=== PATIENT | female | born 1955 | race Caucasian/White ===

== ENCOUNTER 2023-05-03 04:06 | Day surgery (SDC) | payer MEDICARE, MEDICAID, SELFPAY ==
--- NOTE | 2023-04-22 13:19 | PC.NURSE ---
Addendum entered by Josie Lawson RN 04/22/23 13:42: HOLD ASPIRIN PER DR PATTON Original Note: Report to the Outpatient Waiting Room, entrance under the green pavilion located off [facility], at time _9:00AM on date __05/03/23 . Planned Procedure Time: __11:00AM . Time changes happen often and if your time is changed the preop area will call you the afternoon before. - You and your visitor will be asked to self-screen and do not enter if you have any COVID symptoms. - A mask is optional within the hospital at this time. Patients may have clear liquids (water, carbonated beverages, clear teas, apple juice) until 3 hours prior to surgery with a maximum of 20 ounces. - No food from midnight until time of surgery. Take the following medications with a SIP of water the morning of surgery: __AMLODIPINE, BUSPIRONE, ESCITALOPRAM, OLANZAPINE, ZIPRASIDONE & AM EYE DROPS. TRAMADOL, ALBUTEROL INHALER & NEBULIZER TREATMENT NEEDED. DO NOT STOP ANY OF YOUR OTHER PRESCRIPTION MEDICATIONS PRIOR TO SURGERY ?EXCEPT THE FOLLOWING Medications to discontinue per physician ____HOLD ASPIRIN 7 DAYS PRE-OP PER DR PATTON Date to take last dose____04/26/23 Please no make-up, nail djiboutian, hairspray, perfume, deodorant, or body powder the day of surgery. No jewelry (including any body piercings) or valuables the day of surgery, leave them at home. Please take a shower or bath the night before, or the morning of, surgery with an antibacterial soap. Wear comfortable, loose fitting clothing. - Jewelry must be removed prior to entering the operating room. Rings and piercings that are not removed may be cut off. - The hospital will not accept responsibility for valuables. - Please leave all valuables, including medications, at home the day of surgery. If you are going home after surgery, a licensed wood pile driver operator must drive you home. - NO public transportation without another adult if you receive anesthesia. - We recommend that an adult stay with you for 24 hours following discharge. - We also recommend that you do not drive, make important decision, drink alcoholic beverages, or take any drugs that were not prescribed by your health care provider for at least 24 hours after your discharge time. Follow any additional instructions given to you from your surgeon. If you or anyone in your household have experienced Covid symptoms in the past week, please notify your surgeon or the nurse liaison at the phone number below for possible testing. Telephone instructions given to _NURSING HOME____and asked if any additional questions and then verbalized understanding. Patient advised to call surgeon office or pre surgery nurse liaison [phone] if any additional questions.
[2023-05-03] VITALS (11 sets, daily range): BP systolic 107–145; BP diastolic 58–89; PULSE 67–82; RESP 14–18; TEMP 36.2–36.6; O2SAT 92–100
--- NOTE | ~2023-05-03 | XR_ITS ---
EXAMINATION: XR retrograde pyelo w/stent BI DATE: 05/03/2023 10:53 INDICATION: Bilateral kidney stones. TECHNIQUE: 4 intraoperative fluoroscopic views of the abdomen and pelvis were obtained. I was not pre sent. Fluoroscopy exposure time was 100 seconds. COMPARISON: None. FINDINGS: Bilateral retrograde pyelograms were performed. There is a large stone in right renal pelvi s. The final images demonstrate bilateral internal ureteral stents in expected positions. IMPRESSION: 1. Stone in right renal pelvis. 2. Bilateral internal ureteral stents in expected positions. Reviewed, dictated and finalized at location A.
--- NOTE | ~2023-05-03 | XR_ITS ---
EXAMINATION: XR abdomen/kub 1V DATE: 05/03/2023 09:13 INDICATION: Kidney stone. TECHNIQUE: A supine view of the abdomen on 2 radiographs was obtained. COMPARISON: None. FINDINGS: There is a large volume of stool in the colon with distention of the rectum. The kidneys ar e obscured by bowel. There are surgical clips in right abdomen. Tubing overlies the abdomen. There is a total right hip arthroplasty. IMPRESSION: 1. No visible urolithiasis. Reviewed, dictated and finalized at location A. IMPRESSION: 1. No visible urolithiasis.
--- NOTE | 2023-05-03 06:59 | WPDHPUPDATE1 ---
History and Physical Update Update Date/Time: 05/03/23 06:59 History and Physical has been reviewed, including an updated exam of the patient. There are NO changes in the patient's condition. Risks, benefits, and alternatives have been discussed and questions answered. Patient agrees to proceed with procedure.
--- NOTE | 2023-05-03 09:51 | WPDANESEPPF ---
Anes - Initial Pre Proc Eval Procedure: Operation Date: 05/03/23 10:30 Proposed Procedures p Right Extracorporeal Shock Wave Lithotripsy - Octavio Alvarez MD s Cystoscopy with Stent Placement - Octavio Alvarez MD Date/Time: 05/03/23 09:51 Surgeon: Octavio Alvarez MD Pre Op Diagnosis: right renal stone Patient Data Age: 68 Gender: F Height: Weight: Allergies Allergy/AdvReac Type Severity Reaction Status Date / Time No Known Allergies Allergy Verified 04/19/23 15:35 Home Medications Medication Instructions Recorded Confirmed Type acetaminophen 325 mg tablet 650 mg PO Q4-5H PRN Pain 04/19/23 04/19/23 History albuterol (refill) 90 2 mcg inhalation Q6-8H PRN Wheezing 04/19/23 04/19/23 History mcg/actuation aerosol inhaler amlodipine 5 mg tablet 5 mg PO QAM 04/19/23 04/19/23 History artificial tears solution eye drops 1 drp ophthalmic (eye) PRN PRN Dry 04/19/23 04/19/23 History Eye(S) aspirin 81 mg tablet,delayed 81 mg PO DAILY 04/19/23 04/19/23 History release bisacodyl 10 mg rectal suppository 10 mg RECTAL DAILY PRN Constipation 04/19/23 04/19/23 History bisacodyl 5 mg tablet 5 mg PO DAILY PRN Constipation 04/19/23 04/19/23 History brinzolamide 1 %-brimonidine 0.2 % 1 drp EACH EYE BID 04/19/23 04/19/23 History eye drops,suspension (Simbrinza) buspirone 10 mg tablet 10 mg PO BID 04/19/23 04/19/23 History calcium carbonate 500 mg calcium 500 mg PO DAILY PRN Indigestion 04/19/23 04/19/23 History (1,250 mg) chewable tablet camphor-menthol 0.2 %-3.5 % 1 applic topical DAILY PRN Pain 04/19/23 04/19/23 History topical gel docusate sodium 100 mg capsule 100 mg PO BID 04/19/23 04/19/23 History (Colace) escitalopram oxalate 5 mg tablet 5 mg PO QAM 04/19/23 04/19/23 History ipratropium 0.5 mg-albuterol 3 mg 3 ml inhalation Q6-8H PRN Wheezing 04/19/23 04/19/23 History (2.5 mg base)/3 mL nebulization soln lactobacillus combination no.8 3 3 cell PO QAM 04/19/23 04/19/23 History billion cell capsule loteprednol etabonate 0.2 % eye 1 drp EACH EYE TID 04/19/23 04/19/23 History drops,suspension (Alrex) montelukast 10 mg tablet 10 mg PO DAILY 04/19/23 04/19/23 History nystatin 100,000 unit/gram topical 1 applic topical BID 04/19/23 04/19/23 History powder olanzapine 5 mg tablet 5 mg PO QAM 04/19/23 04/19/23 History olopatadine 0.7 % eye drops 1 drp EACH EYE DAILY 04/19/23 04/19/23 History (Pataday Once Daily Relief) ondansetron HCl 4 mg tablet 4 mg PO Q8-10H PRN Nausea 04/19/23 04/19/23 History pantoprazole 20 mg tablet,delayed 20 mg PO QAM 04/19/23 04/19/23 History release polyethylene glycol 3350 17 17 g PO DAILY 04/19/23 04/19/23 History gram/dose oral powder sennosides 8.6 mg tablet (Senna 8.6 mg PO BID 04/19/23 04/19/23 History Lax) solifenacin 10 mg tablet 10 mg PO QAM 04/19/23 04/19/23 History tramadol 50 mg tablet 50 mg PO BID 04/19/23 04/19/23 History ziprasidone HCl 80 mg capsule 80 mg PO BID 04/19/23 04/19/23 History sulfamethoxazole 400 1 tablet PO BID 04/22/23 04/22/23 History mg-trimethoprim 80 mg tablet Patient hx anesthesia problems: none Family hx anesthesia problems: none Results Review: All pre-operative results and documents have been reviewed as part of the pre-operative evaluation. [facility] Past Medical History Medical History (Updated 05/03/23 @ 09:52 by Clarke Can MD) Asthma CKD (chronic kidney disease) Morbid obesity Social History Social History Smoking status: Unknown if ever smoked Living arrangements: fpc Spiritual care concerns: No Anes - Eval Final PreProcedure Day of Procedure 05/03/23 09:51 Patient weight: morbidly obese Heart: regular rate and rhythm Lungs: clear to auscultation Airway: Mallampati scale class II and special considerations poor opening and poor extension Neurological: alert and oriented Last oral intake: >/= 8
--- NOTE | 2023-05-03 09:53 | ECG_ITS ---
Measurements Intervals [place] Rate: 74 P: 49 MT: 186 QRS: 38 QRSD: 98 T: 16 QT: 371 QTc: 412 Interpretive Statements SINUS RHYTHM NORMAL ECG NO PREVIOUS ECG AVAILABLE FOR COMPARISON Electronically Signed On 05-03-2023 14:00:30 CDT by Shahid Salomon M.D.
[2023-05-03] MEDS: ceFAZolin 2 GM/D5W 50 ML 2 GM/50 ML BAG IVPB (10:29)
[2023-05-03] MEDS: LACTATED RINGERS 1,000 ML 30 ML IV CONT (10:56)
--- NOTE | 2023-05-03 11:06 | W.PM.PROC2 ---
Procedure Note - Detailed Date of Procedure 05/03/23 Pre-op Diagnosis Bilateral renal calculi Post-op Diagnosis Same Procedure Performed Cystoscopy, bilateral retrograde pyelography, bilateral ureteral stent placement Surgeon Octavio Alvarez MD Anesthesia General Description of Procedure Patient was initially scheduled for right ESWL but given a recent positive urine culture we elected, instead for cystoscopy with bilateral ureteral stent placement to enhance clearing her chronic urinary tract infection. Outside imaging was carefully reviewed and discussed with patient and her caregiver. She has a left renal staghorn and a large 15-18 mm right renal pelvic stone that appears to be densely calcified. With our procedure we placed a 21 F rigid cystoscope in her bladder. Her bladder neck and urethra endoscopically normal. Bladder showed diffuse hyperemia consistent with infection. She had a single orthotopic ureteral orifice bilaterally. And angiographic catheter was used to obtain bilateral retrograde pyelograms. On the right she appears quite obstructed with placement of a 6 F variable length stent there is markedly purulent urine effluxing from the right ureteral orifice. A left stent was easier to place. Intraoperative fluoroscopy confirmed appropriate positioning of the stents with proximal coil was in renal pelvis and distal coil in the bladder. Scopes wire was removed she was taken recovery room good condition. I will plan to treat her with 7 days of ceftazidime 1 g b.i.d. and Macrobid 1 tablet b.i.d.. I will and re-culture her urine and will make an ultimate decision about either chronic indwelling ureteral stents versus more aggressive therapy for her large bilateral renal stones. Packing No Pathology Yes Complications No immediate complications Condition Stable Disposition PACU
[2023-05-03 11:36] LABS: Glucose Point of Care 87 mg/dl (65-105)
[2023-05-03] MEDS: cefTAZidime 1 GM/NS 50 ML 1 GM/50 ML BAG IVPB (11:38)
[2023-05-03] MEDS: fentaNYL CITRATE INJ (*CRX) 100 MCG/2 ML VIAL 25 MCG IV PUSH ×2 (11:59→12:05)
[2023-05-03] MEDS: oxyCODONE HCL (*CRX) 5 MG TAB IR PO (12:46)
[2023-05-03] MEDS: LIDOCAINE HCL 1% LOCAL INJ 2 ML AMPUL 5 ML INFILTRATE (13:20)
--- NOTE | 2023-05-03 14:04 | SUR.PHASEII ---
Addendum entered by Ashlee Wise RN 05/03/23 14:38: Spoke with Josie HERNÁNDEZ at [facility] and updated on last dose of pain medication and last dose of antibiotics. Original Note: Pt facility [facility] updated on pt prescriptions and discharge instructions and notified of discharge.
== END 2023-05-03 14:18 | disposition home or self-care (01) ==
PROVIDERS: Visit Provider Urology
PROC: (CPT 52352; 2023-05-03 10:30)
DX: N39.0 Urinary tract infection, site not specified (principal); N20.0 Calculus of kidney; J45.909 Unspecified asthma, uncomplicated; Z79.51 Long term (current) use of inhaled steroids; Z79.82 Long term (current) use of aspirin; N18.9 Chronic kidney disease, unspecified
CPT/HCPCS: 52332; 36569; 74018; 74420; 82948; 87077; 87086; 87147; 87181; 87186; 93005; A9270; C1758; C1769; C2617; J0690; J0713; J2704; J3010; J7120; Q9966

== ENCOUNTER 2023-09-05 00:36 | Day surgery (SDC) | payer MEDICARE, MEDICAID, SELFPAY ==
--- NOTE | 2023-08-26 15:02 | PC.NURSE ---
Report to the Outpatient Waiting Room, entrance under the green pavilion located off [facility], at time __10:00AM on date __09/05/23 . Planned Procedure Time: __12:00PM . Time changes happen often and if your time is changed the preop area will call you the afternoon before. - You and your visitor will be asked to self-screen and do not enter if you have any COVID symptoms. - A mask is optional within the hospital at this time. Patients may have clear liquids (water, carbonated beverages, clear teas, apple juice) until 3 hours prior to surgery with a maximum of 20 ounces. - No food from midnight until time of surgery. Take the following medications with a SIP of water the morning of surgery: __AMLODIPINE, BUSPIRONE, ESCITALOPRAM, OLANZAPINE, SIMBRINZA, ZIPRASIDONE, EYE DROPS. MAY GIVE PRN-ALBUTEROL INHALER, IPRATROPIUM-ALBUTEROL INHALER, COUGH MEDICATION,ZOFRAN OR TRAMADOL NEEDED. DO NOT STOP ANY OF YOUR OTHER PRESCRIPTION MEDICATIONS PRIOR TO SURGERY ?EXCEPT THE FOLLOWING Medications to discontinue per physician ___HOLD ASPIRIN 7 DAYS PRE-OP PER DR PATTON Date to take last dose 08/28/23 Please no make-up, nail lithuanian, hairspray, perfume, deodorant, or body powder the day of surgery. No jewelry (including any body piercings) or valuables the day of surgery, leave them at home. Please take a shower or bath the night before, or the morning of, surgery with an antibacterial soap. Wear comfortable, loose fitting clothing. - Jewelry must be removed prior to entering the operating room. Rings and piercings that are not removed may be cut off. - The hospital will not accept responsibility for valuables. - Please leave all valuables, including medications, at home the day of surgery. If you are going home after surgery, a licensed shuttle van driver must drive you home. - NO public transportation without another adult if you receive anesthesia. - We recommend that an adult stay with you for 24 hours following discharge. - We also recommend that you do not drive, make important decision, drink alcoholic beverages, or take any drugs that were not prescribed by your health care provider for at least 24 hours after your discharge time. Follow any additional instructions given to you from your surgeon. If you or anyone in your household have experienced Covid symptoms in the past week, please notify your surgeon or the nurse liaison at the phone number below for possible testing. Telephone instructions given to ___NURSING HOME and asked if any additional questions and then verbalized understanding. Patient advised to call surgeon office or pre surgery nurse liaison [phone] if any additional questions.
[2023-08-26 15:11] VITALS: BMI 44.5
--- NOTE | 2023-09-03 14:01 | PM.HPGS ---
History of Present Illness History of Present Illness Consent: Risks, benefits, and alternatives have been discussed and questions answered. Patient agrees to proceed with procedure. Chief complaint: Kidney Stone, Pyelonephritis Narrative: Kay Khan is a 68 year old female who resides in a care home, has a BMI in excess of 45 with very limited mobility. She has a challenging urological problem with a left staghorn calculus and a large, 15-20 mm right renal pelvic calculus. Her body habitus makes these not amenable to ESWL. We have considered percutaneous nephrolithotomy but she has opted against and elected, instead, for chronic ureteral stents with bilateral ureteral stent exchange at a regular interval. She is aware the risk including, but not limited to, long-term renal deterioration, hematuria, urinary tract infections. Review of Systems Cardiovascular: Cardiovascular: Denies chest pain, Denies lightheadedness, Denies palpitations and Denies dyspnea Respiratory: Respiratory: Denies dyspnea Gastrointestinal: Gastrointestinal: Denies diarrhea, Denies nausea and Denies vomiting Genitourinary: Genitourinary: Denies hematuria and Denies dysuria Endocrine: Endocrine: Denies palpitations [facility] Past Medical History Medical History (Updated 09/03/23 @ 14:02 by Octavio Alvarez MD) Asthma CKD (chronic kidney disease) Morbid obesity Social History Social History Smoking status: Unknown if ever smoked Alcohol intake: unknown Substance use: unknown Living arrangements: care home Spiritual care concerns: No Meds Home Medications and Allergies Home Medications Medication Instructions Recorded Confirmed Type acetaminophen 325 mg tablet 650 mg PO Q4-5H PRN Pain 04/19/23 08/26/23 History albuterol (refill) 90 2 mcg inhalation Q6-8H PRN Wheezing 04/19/23 08/26/23 History mcg/actuation aerosol inhaler amlodipine 5 mg tablet 5 mg PO QAM 04/19/23 08/26/23 History artificial tears solution eye drops 1 drp ophthalmic (eye) PRN PRN Dry 04/19/23 08/26/23 History Eye(S) aspirin 81 mg tablet,delayed 81 mg PO DAILY 04/19/23 08/26/23 History release bisacodyl 10 mg rectal suppository 10 mg RECTAL DAILY PRN Constipation 04/19/23 08/26/23 History bisacodyl 5 mg tablet 5 mg PO DAILY PRN Constipation 04/19/23 08/26/23 History brinzolamide 1 %-brimonidine 0.2 % 1 drp EACH EYE BID 04/19/23 08/26/23 History eye drops,suspension (Simbrinza) buspirone 10 mg tablet 10 mg PO TID 04/19/23 08/26/23 History calcium carbonate 500 mg calcium 500 mg PO DAILY PRN Indigestion 04/19/23 08/26/23 History (1,250 mg) chewable tablet docusate sodium 100 mg capsule 100 mg PO BID 04/19/23 08/26/23 History (Colace) ipratropium 0.5 mg-albuterol 3 mg 3 ml inhalation Q6-8H PRN Wheezing 04/19/23 08/26/23 History (2.5 mg base)/3 mL nebulization soln loteprednol etabonate 0.2 % eye 1 drp EACH EYE TID 04/19/23 08/26/23 History drops,suspension (Alrex) montelukast 10 mg tablet 10 mg PO DAILY 04/19/23 08/26/23 History nystatin 100,000 unit/gram topical 1 applic topical BID PRN Rash 04/19/23 08/26/23 History powder olanzapine 5 mg tablet 5 mg PO QAM 04/19/23 08/26/23 History olopatadine 0.7 % eye drops 1 drp EACH EYE DAILY 04/19/23 08/26/23 History (Pataday Once Daily Relief) ondansetron HCl 4 mg tablet 4 mg PO Q8-10H PRN Nausea 04/19/23 08/26/23 History pantoprazole 20 mg tablet,delayed 20 mg PO QAM 04/19/23 08/26/23 History release polyethylene glycol 3350 17 17 g PO DAILY PRN Constipation 04/19/23 08/26/23 History gram/dose oral powder sennosides 8.6 mg tablet (Senna 8.6 mg PO BID 04/19/23 08/26/23 History Lax) solifenacin 10 mg tablet 10 mg PO QAM 04/19/23 08/26/23 History tramadol 50 mg tablet 50 mg PO BID 04/19/23 08/26/23 History ziprasidone HCl 80 mg capsule 80 mg PO BID 04/19/23 08/26/23 History benzonatate 100 mg capsule 100 mg PO Q8-10
--- NOTE | 2023-09-04 09:50 | WPDANESEPPF ---
Anes - Initial Pre Proc Eval Procedure: Operation Date: 09/05/23 13:00 Proposed Procedures p Cystoscopy, Bilateral Retrograde Pyelogram, Bilateral Stent Exchange - Octavio Alvarez MD Date/Time: 09/04/23 09:50 Surgeon: Octavio Alvarez MD Pre Op Diagnosis: Kidney Stone, Pyelonephritis Patient Data Age: 68 Gender: F Height: 1.55 m Weight: 107 kg Allergies Allergy/AdvReac Type Severity Reaction Status Date / Time No Known Allergies Allergy Verified 09/05/23 11:23 Home Medications Medication Instructions Recorded Confirmed Type acetaminophen 325 mg tablet 650 mg PO Q4-5H PRN Pain 04/19/23 08/26/23 History albuterol (refill) 90 2 mcg inhalation Q6-8H PRN Wheezing 04/19/23 08/26/23 History mcg/actuation aerosol inhaler amlodipine 5 mg tablet 5 mg PO QAM 04/19/23 09/05/23 History artificial tears solution eye drops 1 drp ophthalmic (eye) PRN PRN Dry 04/19/23 09/05/23 History Eye(S) aspirin 81 mg tablet,delayed 81 mg PO DAILY 04/19/23 09/05/23 History release bisacodyl 10 mg rectal suppository 10 mg RECTAL DAILY PRN Constipation 04/19/23 08/26/23 History bisacodyl 5 mg tablet 5 mg PO DAILY PRN Constipation 04/19/23 08/26/23 History brinzolamide 1 %-brimonidine 0.2 % 1 drp EACH EYE BID 04/19/23 09/05/23 History eye drops,suspension (Simbrinza) buspirone 10 mg tablet 10 mg PO TID 04/19/23 09/05/23 History calcium carbonate 500 mg calcium 500 mg PO DAILY PRN Indigestion 04/19/23 08/26/23 History (1,250 mg) chewable tablet docusate sodium 100 mg capsule 100 mg PO BID 04/19/23 08/26/23 History (Colace) ipratropium 0.5 mg-albuterol 3 mg 3 ml inhalation Q6-8H PRN Wheezing 04/19/23 08/26/23 History (2.5 mg base)/3 mL nebulization soln loteprednol etabonate 0.2 % eye 1 drp EACH EYE TID 04/19/23 08/26/23 History drops,suspension (Alrex) montelukast 10 mg tablet 10 mg PO DAILY 04/19/23 08/26/23 History nystatin 100,000 unit/gram topical 1 applic topical BID PRN Rash 04/19/23 08/26/23 History powder olanzapine 5 mg tablet 5 mg PO QAM 04/19/23 09/05/23 History olopatadine 0.7 % eye drops 1 drp EACH EYE DAILY 04/19/23 08/26/23 History (Pataday Once Daily Relief) ondansetron HCl 4 mg tablet 4 mg PO Q8-10H PRN Nausea 04/19/23 08/26/23 History pantoprazole 20 mg tablet,delayed 20 mg PO QAM 04/19/23 08/26/23 History release polyethylene glycol 3350 17 17 g PO DAILY PRN Constipation 04/19/23 08/26/23 History gram/dose oral powder sennosides 8.6 mg tablet (Senna 8.6 mg PO BID 04/19/23 08/26/23 History Lax) solifenacin 10 mg tablet 10 mg PO QAM 04/19/23 08/26/23 History tramadol 50 mg tablet 50 mg PO BID 04/19/23 08/26/23 History ziprasidone HCl 80 mg capsule 80 mg PO BID 04/19/23 09/05/23 History benzonatate 100 mg capsule 100 mg PO Q8-10H PRN Cough 08/26/23 08/26/23 History dextromethorphan-guaifenesin 20 10 ml PO Q6-12H PRN Cough 08/26/23 08/26/23 History mg-200 mg/15 mL oral liquid escitalopram oxalate 10 mg tablet 10 mg PO DAILY 08/26/23 09/05/23 History guaifenesin 600 mg tablet,extended 600 mg PO BID PRN Cough 08/26/23 08/26/23 History release melatonin 5 mg tablet 5 mg PO HS PRN Insomnia 08/26/23 08/26/23 History Patient hx anesthesia problems: none Family hx anesthesia problems: none Results Review: All pre-operative results and documents have been reviewed as part of the pre-operative evaluation. COUNTS INCLUDE 234 BEDS AT THE [facility] Past Medical History Medical History (Updated 09/04/23 @ 09:51 by Jaydon Castano, ) Asthma Bipolar disorder CKD (chronic kidney disease) DVT (deep venous thrombosis) GERD (gastroesophageal reflux disease) Glaucoma Hyperlipidemia Hypertension Lymphedema Morbid obesity Schizophrenia Social History Social History Smoking status: Unknown if ever smoked Alcohol intake: unknown Substance use: unknown Living arrangements: shelter Spiritual care concerns: No Anes - Eval F
[2023-09-05] VITALS (9 sets, daily range): BP systolic 114–142; BP diastolic 56–82; PULSE 69–80; RESP 11–20; TEMP 36.3–36.7; O2SAT 94–100
--- NOTE | ~2023-09-05 | XR_ITS ---
EXAMINATION: XR retrograde pyelo w/stent BI DATE: 09/05/2023 13:23 INDICATION: Kidney stone. Bilateral pyelonephritis. TECHNIQUE: 32 intraoperative fluoroscopic views of the abdomen and pelvis were obtained. I was not pr esent. Fluoroscopy exposure time was 37 seconds. COMPARISON: Fluoroscopy 05/03/2023 FINDINGS: Bilateral retrograde pyelograms are unremarkable. The final images demonstrated bilateral i nternal ureteral stents in expected position. IMPRESSION: 1. New bilateral internal ureteral stents in expected positions. Reviewed, dictated and finalized at location A. [place] [employer]
--- NOTE | 2023-09-05 06:13 | WPDHPUPDATE1 ---
History and Physical Update Update Date/Time: 09/05/23 06:13 History and Physical has been reviewed, including an updated exam of the patient. There are NO changes in the patient's condition. Risks, benefits, and alternatives have been discussed and questions answered. Patient agrees to proceed with procedure.
[2023-09-05] MEDS: LACTATED RINGERS 1,000 ML 30 ML IV CONT (11:20)
--- NOTE | 2023-09-05 13:26 | P.OP_ITS ---
Procedure Note - Detailed Date of Procedure 09/05/23 Pre-op Diagnosis Kidney Stone, Pyelonephritis Post-op Diagnosis Same Procedure Performed Cystoscopy, bilateral retrograde pyelography, bilateral ureteral stent exchange Surgeon Octavio Alvarez MD Anesthesia General Description of Procedure Patient brought the op suite where she has prepped draped in routine sterile fashion while in dorsal lithotomy position. 2% xylocaine jelly was introduced intraurethrally and general anesthesia for an LMA as administered per the anesthesia department. Cystoscopy is undertaken with a 21 F rigid cystoscope. The tip of each indwelling stent is brought to the external urethral meatus. The bladder mucosa is normal except for mild hyperemia around the ureteral orifices as result of indwelling stents. They are to intravesical neoplasm. Each stent is removed with ease with minimal incrustation. Angiographic cath eter was used to obtain bilateral retrograde pyelograms and ensure appropriate placement of bilateral 6 F variable length stent. Bladder was emptied patient was taken recovery room good condition. Drains Yes Packing No Pathology None sent Complications No immediate complications
== END 2023-09-05 15:47 | disposition home or self-care (01) ==
PROVIDERS: Visit Provider Urology
PROC: (CPT 52352; principal; 2023-09-05 13:00)
DX: N20.2 Calculus of kidney with calculus of ureter (principal); J45.909 Unspecified asthma, uncomplicated; I12.9 Hypertensive chronic kidney disease with stage 1 through stage 4 chronic kidney disease, or unspecified chronic kidney disease; N18.9 Chronic kidney disease, unspecified; E78.5 Hyperlipidemia, unspecified; K21.9 Gastro-esophageal reflux disease without esophagitis; F31.9 Bipolar disorder, unspecified; F20.9 Schizophrenia, unspecified; Z86.718 Personal history of other venous thrombosis and embolism; Z79.51 Long term (current) use of inhaled steroids; Z79.82 Long term (current) use of aspirin; E66.01 Morbid (severe) obesity due to excess calories; Z68.42 Body mass index [BMI] 45.0-49.9, adult
CPT/HCPCS: 52332; 74420; C1758; C1769; C2617; J0696; J2250; J2405; J2704; J3010; J7120; Q9966

== ENCOUNTER 2024-03-05 01:32 | Day surgery (SDC) | payer MEDICARE, MEDICAID, SELFPAY ==
[2024-03-03 13:33] VITALS: BMI 47.7
--- NOTE | 2024-03-03 13:39 | PC.NURSE ---
Report to the Outpatient Waiting Room, entrance under the green pavilion located off [facility], at time _10:00 AM on date _03/05/24 . Planned Procedure Time: _12:00 PM . Time changes happen often and if your time is changed the preop area will call you the afternoon before. - You and your visitor will be asked to self-screen and do not enter if you have any COVID symptoms. - A mask is optional within the hospital at this time. Patients may have clear liquids (water, carbonated beverages, clear teas, apple juice) until 3 hours prior to surgery(9:OO AM) with a maximum of 20 ounces. - No food from midnight until time of surgery - Infants may have breast milk until 4 hours before surgery, infant formula 6 hours prior to surgery. - Children will be allowed to drink immediately following surgery. If applicable, please bring a bottle or sippy cup to assist with drinking. Juice, water, soda, and popsicles are readily available. For infants on formula, please bring formula the day of surgery. Pacifiers are allowed. Take the following medications with a SIP of water the morning of surgery: _EYE DROPS,AMLODIPINE,BUSPIRONE,DULOXETINE,ESCITALOPRAM,ZIPRASIDONE,OLAZAPINE.ALBUTEROL IF NEEDED DO NOT STOP ANY OF YOUR OTHER PRESCRIPTION MEDICATIONS PRIOR TO SURGERY ?EXCEPT THE FOLLOWING Medications to discontinue per physician __HOLD ASPIRIN 7 DAYS PRE OP PER DR PATTON.LAST DOSE 02/26/24 Please no make-up, nail latvian, hairspray, perfume, deodorant, or body powder the day of surgery. No jewelry (including any body piercings) or valuables the day of surgery, leave them at home. Please take a shower or bath the night before, or the morning of, surgery with an antibacterial soap. Wear comfortable, loose fitting clothing. Children are encouraged to wear pajamas. - Jewelry must be removed prior to entering the operating room. Rings and piercings that are not removed may be cut off. - The hospital will not accept responsibility for valuables. - Please leave all valuables, including medications, at home the day of surgery. If you are going home after surgery, a licensed star route mail driver must drive you home. - NO public transportation without another adult if you receive anesthesia. - We recommend that an adult stay with you for 24 hours following discharge. - We also recommend that you do not drive, make important decision, drink alcoholic beverages, or take any drugs that were not prescribed by your health care provider for at least 24 hours after your discharge time. For Pediatric surgeries, we recommend two adults accompany the child home. Follow any additional instructions given to you from your surgeon. If you or anyone in your household have experienced Covid symptoms in the past week, please notify your surgeon or the nurse liaison at the phone number below for possible testing. FAXED instructions given to _[facility] ATTEN: AICHA and asked if any additional questions and then verbalized understanding. Patient advised to call surgeon office or pre surgery nurse liaison [phone] if any additional questions.
--- NOTE | 2024-03-04 07:28 | PM.HPGS ---
History of Present Illness History of Present Illness Consent: Risks, benefits, and alternatives have been discussed and questions answered. Patient agrees to proceed with procedure. Chief complaint: Bilateral [place] Kidney Stone Narrative: Kay Khan is a 68 year old female who resides in a senior care, has a BMI in excess of 45 with very limited mobility. She has a challenging urological problem with a left staghorn calculus and a large, 15-20 mm right renal pelvic calculus. Her body habitus makes these not amenable to ESWL. We have considered percutaneous nephrolithotomy but she has opted against and elected, instead, for chronic ureteral stents with bilateral ureteral stent exchange at a regular interval. She is aware the risk including, but not limited to, long-term renal deterioration, hematuria, urinary tract infections. Review of Systems Review of Systems: All systems reviewed & are unremarkable except as noted in HPI and below PMFSH Past Medical History Medical History (Updated 09/04/23 @ 09:51 by Jaydon Castano, ) Asthma Bipolar disorder CKD (chronic kidney disease) DVT (deep venous thrombosis) GERD (gastroesophageal reflux disease) Glaucoma Hyperlipidemia Hypertension Lymphedema Morbid obesity Schizophrenia Social History Social History Smoking status: Unknown if ever smoked Alcohol intake: unknown Substance use: unknown Living arrangements: senior care Spiritual care concerns: No Meds Home Medications and Allergies Home Medications Medication Instructions Recorded Confirmed Type acetaminophen 325 mg tablet 650 mg PO Q4-5H PRN Pain 04/19/23 03/03/24 History albuterol (refill) 90 2 mcg inhalation Q6-8H PRN Cough 04/19/23 03/03/24 History mcg/actuation aerosol inhaler amlodipine 5 mg tablet 5 mg PO QAM 04/19/23 03/03/24 History artificial tears solution eye drops 1 drp ophthalmic (eye) PRN PRN Dry 04/19/23 03/03/24 History Eye(S) aspirin 81 mg tablet,delayed 81 mg PO DAILY 04/19/23 03/03/24 History release bisacodyl 10 mg rectal suppository 10 mg RECTAL PRN PRN Constipation 04/19/23 03/03/24 History brinzolamide 1 %-brimonidine 0.2 % 1 drp EACH EYE BID 04/19/23 03/03/24 History eye drops,suspension (Simbrinza) buspirone 10 mg tablet 10 mg PO TID 04/19/23 03/03/24 History calcium carbonate 500 mg PO DAILY PRN Indigestion 04/19/23 03/03/24 History docusate sodium 100 mg capsule 100 mg PO BID 04/19/23 03/03/24 History (Colace) ipratropium 0.5 mg-albuterol 3 mg 3 ml inhalation Q6-8H PRN Wheezing 04/19/23 03/03/24 History (2.5 mg base)/3 mL nebulization soln loteprednol etabonate 0.2 % eye 1 drp EACH EYE TID 04/19/23 03/03/24 History drops,suspension (Alrex) montelukast 10 mg tablet 10 mg PO DAILY 04/19/23 03/03/24 History nystatin 100,000 unit/gram topical 1 applic topical BID PRN Rash 04/19/23 03/03/24 History powder olanzapine 5 mg tablet 5 mg PO BID 04/19/23 03/03/24 History olopatadine 0.7 % eye drops 1 drp EACH EYE DAILY 04/19/23 03/03/24 History (Pataday Once Daily Relief) pantoprazole 20 mg tablet,delayed 20 mg PO QAM 04/19/23 03/03/24 History release polyethylene glycol 3350 17 17 g PO DAILY PRN Constipation 04/19/23 03/03/24 History gram/dose oral powder sennosides 8.6 mg tablet (Senna 8.6 mg PO BID 04/19/23 03/03/24 History Lax) solifenacin 10 mg tablet 10 mg PO QAM 04/19/23 03/03/24 History tramadol 50 mg tablet 50 mg PO BID 04/19/23 03/03/24 History ziprasidone HCl 80 mg capsule 80 mg PO BID 04/19/23 03/03/24 History benzonatate 100 mg capsule 100 mg PO Q8-10H PRN Cough 08/26/23 03/03/24 History dextromethorphan-guaifenesin 20 10 ml PO Q6-12H PRN Cough 08/26/23 03/03/24 History mg-200 mg/15 mL oral liquid escitalopram oxalate 10 mg tablet 10 mg PO DAILY 08/26/23 03/03/24 History guaifenesin 600 mg tablet,extended 600 mg PO BID PRN Cough 08/26/23 03/03/24 History r
[2024-03-05] VITALS (10 sets, daily range): BP systolic 121–141; BP diastolic 57–83; PULSE 68–81; RESP 13–20; TEMP 34.9–36.1; O2SAT 95–100
--- NOTE | ~2024-03-05 | XR_ITS ---
EXAMINATION: XR retrograde pyelo w/stent BI DATE: 03/05/2024 12:06 INDICATION: Bilateral calcium kidney stone. TECHNIQUE: 30 intraoperative fluoroscopic views of the abdomen and pelvis were obtained. I was not pr esent. Fluoroscopy exposure time was 36 seconds. COMPARISON: Fluoroscopy 09/05/2023 FINDINGS: The supervisor grading image demonstrates bilateral internal ureteral stents in expected positions. Ther e is a total right hip arthroplasty. Bilateral retrograde pyelograms demonstrate mild bilateral hydro nephrosis. The final images demonstrate new internal ureteral stents in expected positions. IMPRESSION: 1. New bilateral internal ureteral stents in expected positions. Reviewed, dictated and finalized at location A.
--- NOTE | 2024-03-05 06:38 | WPDHPUPDATE1 ---
History and Physical Update Update Date/Time: 03/05/24 06:38 History and Physical has been reviewed, including an updated exam of the patient. There are NO changes in the patient's condition. Risks, benefits, and alternatives have been discussed and questions answered. Patient agrees to proceed with procedure.
[2024-03-05] MEDS: LACTATED RINGERS 1,000 ML 30 ML IV CONT (10:45)
--- NOTE | 2024-03-05 11:24 | WPDANESEPPF ---
Anes - Initial Pre Proc Eval Procedure: Operation Date: 03/05/24 12:00 Proposed Procedures p Cystoscopy with Bilateral Stent Exchange - Octavio Alvarez MD Date/Time: 03/05/24 11:24 Surgeon: Octavio Alvarez MD Pre Op Diagnosis: Bilateral [place] Kidney Stone Patient Data Age: 68 Gender: F Height: 1.55 m Weight: 108.6 kg Last Vital Signs Temp 34.9 C L 03/05/24 11:00 Pulse 81 03/05/24 11:00 Resp 18 03/05/24 11:00 BP 129/73 03/05/24 11:00 Pulse Ox 96 03/05/24 11:00 O2 Del Method Room Air 03/05/24 11:00 Allergies Allergy/AdvReac Type Severity Reaction Status Date / Time No Known Allergies Allergy Verified 03/05/24 10:47 Home Medications Medication Instructions Recorded Confirmed Type acetaminophen 325 mg tablet 650 mg PO Q4-5H PRN Pain 04/19/23 03/05/24 History albuterol (refill) 90 2 mcg inhalation Q6-8H PRN Cough 04/19/23 03/05/24 History mcg/actuation aerosol inhaler amlodipine 5 mg tablet 5 mg PO QAM 04/19/23 03/05/24 History artificial tears solution eye drops 1 drp ophthalmic (eye) PRN PRN Dry 04/19/23 03/05/24 History Eye(S) aspirin 81 mg tablet,delayed 81 mg PO DAILY 04/19/23 03/05/24 History release bisacodyl 10 mg rectal suppository 10 mg RECTAL PRN PRN Constipation 04/19/23 03/05/24 History brinzolamide 1 %-brimonidine 0.2 % 1 drp EACH EYE BID 04/19/23 03/05/24 History eye drops,suspension (Simbrinza) buspirone 10 mg tablet 10 mg PO TID 04/19/23 03/05/24 History calcium carbonate 500 mg PO DAILY PRN Indigestion 04/19/23 03/05/24 History docusate sodium 100 mg capsule 100 mg PO BID 04/19/23 03/05/24 History (Colace) ipratropium 0.5 mg-albuterol 3 mg 3 ml inhalation Q6-8H PRN Wheezing 04/19/23 03/05/24 History (2.5 mg base)/3 mL nebulization soln loteprednol etabonate 0.2 % eye 1 drp EACH EYE TID 04/19/23 03/05/24 History drops,suspension (Alrex) montelukast 10 mg tablet 10 mg PO DAILY 04/19/23 03/05/24 History nystatin 100,000 unit/gram topical 1 applic topical BID PRN Rash 04/19/23 03/05/24 History powder olanzapine 5 mg tablet 5 mg PO BID 04/19/23 03/05/24 History olopatadine 0.7 % eye drops 1 drp EACH EYE DAILY 04/19/23 03/05/24 History (Pataday Once Daily Relief) pantoprazole 20 mg tablet,delayed 20 mg PO QAM 04/19/23 03/05/24 History release polyethylene glycol 3350 17 17 g PO DAILY PRN Constipation 04/19/23 03/05/24 History gram/dose oral powder sennosides 8.6 mg tablet (Senna 8.6 mg PO BID 04/19/23 03/05/24 History Lax) solifenacin 10 mg tablet 10 mg PO QAM 04/19/23 03/05/24 History tramadol 50 mg tablet 50 mg PO BID 04/19/23 03/05/24 History ziprasidone HCl 80 mg capsule 80 mg PO BID 04/19/23 03/05/24 History benzonatate 100 mg capsule 100 mg PO Q8-10H PRN Cough 08/26/23 03/05/24 History dextromethorphan-guaifenesin 20 10 ml PO Q6-12H PRN Cough 08/26/23 03/05/24 History mg-200 mg/15 mL oral liquid escitalopram oxalate 10 mg tablet 10 mg PO DAILY 08/26/23 03/05/24 History guaifenesin 600 mg tablet,extended 600 mg PO BID PRN Cough 08/26/23 03/05/24 History release melatonin 5 mg tablet 5 mg PO HS PRN Insomnia 08/26/23 03/05/24 History atorvastatin 10 mg tablet 10 mg PO HS 03/03/24 03/05/24 History bumetanide 2 mg tablet 2 mg PO DAILY 03/03/24 03/05/24 History diclofenac sodium 1 % topical gel 1 ea topical QID BILAT KNEES 03/03/24 03/05/24 History duloxetine 20 mg capsule,delayed 20 mg PO DAILY 03/03/24 03/05/24 History release latanoprost 0.005 % eye drops 1 drp EACH EYE QAM 03/03/24 03/05/24 History methyl salicylate 15 %-menthol 10 1 applic topical BID PRN Pain 03/03/24 03/05/24 History % topical cream naloxone 4 mg/actuation nasal 1 spray intranasal Q2-3M PRN OPIOD 03/03/24 03/05/24 History spray (Narcan) OVERDOSE potassium chloride 20 mEq 20 meq PO DAILY 03/03/24 03/05/24 History tablet,extended release(part/cryst) tamsulosin 0.4 mg capsule 0.4 mg PO DAILY 03/03/24 03/05/24 History Patient hx
[2024-03-05] MEDS: cefTAZidime 2 GM/NS 50 ML 2 GM/50 ML BAG IVPB (11:32)
--- NOTE | 2024-03-05 12:10 | W.PM.PROC2 ---
Procedure Note - Detailed Date of Procedure 03/05/24 Pre-op Diagnosis Bilateral Calicum Kidney Stone Post-op Diagnosis Same Procedure Performed Cystoscopy, bilateral retrograde pyelogram, bilateral ureteral stent exchange Surgeon Octavio Alvarez MD Anesthesia General Description of Procedure patient is brought to the operative suite where she is prepped draped in routine sterile fashion while in dorsal lithotomy position after the uneventful induction of a general LMA anesthetic. Cystoscopy was undertaken with a 19 F rigid cystoscope. Bladder neck and urethra endoscopically normal. Bladder mucosa is normal with the exception of some hyperemia around each ureteral orifice at the site of the indwelling ureteral stent. Each stent is removed. There is mild to moderate encrustation but they were removed with ease. Bilateral retrograde pyelography was obtained with a [place] catheter to ensure appropriate placement of bilateral 6 F double-J ureteral stent with proximal coils in the renal pelvis distal coil was in the bladder. Bladder was emptied the scope was removed. She was taken recovery room good condition. We will keep this interval at every 5-6 months stent changes. Drains Yes Packing No Pathology Yes Complications No immediate complications
== END 2024-03-05 14:10 | disposition home or self-care (01) ==
PROVIDERS: Visit Provider Urology
PROC: (CPT 52352; principal; 2024-03-05 12:00)
DX: N20.0 Calculus of kidney (principal); I12.9 Hypertensive chronic kidney disease with stage 1 through stage 4 chronic kidney disease, or unspecified chronic kidney disease; N18.9 Chronic kidney disease, unspecified; E78.5 Hyperlipidemia, unspecified; J45.909 Unspecified asthma, uncomplicated; K21.9 Gastro-esophageal reflux disease without esophagitis; F31.9 Bipolar disorder, unspecified; H40.9 Unspecified glaucoma; F20.9 Schizophrenia, unspecified; Z79.51 Long term (current) use of inhaled steroids; E66.01 Morbid (severe) obesity due to excess calories; Z68.42 Body mass index [BMI] 45.0-49.9, adult; Z79.82 Long term (current) use of aspirin; Z79.891 Long term (current) use of opiate analgesic; Z86.718 Personal history of other venous thrombosis and embolism
CPT/HCPCS: 52332; 74420; C1758; C1769; C2617; J0690; J0713; J1100; J1596; J2250; J2371; J2405; J2704; J3010; J7120; Q9966